=== PATIENT | male | born 1980 | race Caucasian/White ===

== ENCOUNTER 2017-05-12 11:24 | Emergency (ER) | payer SELFPAY ==
[~2017-05-12] VITALS: Ht 182.9 cm; Wt 58.8 kg
[2017-05-12] MEDS ORDERED: HYDROcodone/APAP 5/325 TABLET ONE (12:20)
[2017-05-12] MEDS ORDERED: CEFTRIAXONE 1,000 MG ONE (12:21)
[2017-05-12] MEDS ORDERED: HYDROcodone/APAP 5/325 TABLET PO ONE (12:30)
[2017-05-12] MEDS ORDERED: CEFTRIAXONE 1,000 MG in SODIUM CHLORIDE 0.9% 50 ML IVPB ONE (12:30)
[2017-05-12] MEDS ORDERED: SODIUM CHLORIDE FLUSH 10ML SYR IVF ONE (12:30)
[2017-05-12] MEDS ORDERED: CEFTRIAXONE 1,000 MG IM ONE (12:30)
[2017-05-12 12:53] LABS: BLOOD UREA NITROGEN 16 mg/dL (7-18)
[2017-05-12 13:03] VITALS: BP 114/68
== END 2017-05-12 13:15 | disposition home or self-care (01) ==
LOC: ED 12:34
DX: L03.113 Cellulitis of right upper limb (principal)
CPT/HCPCS: 36415; 80048; 82040; 85025; 96372; 99284; J0696

== ENCOUNTER 2017-05-13 06:55 | Emergency (ER) | payer SELFPAY ==
[~2017-05-13] VITALS: Ht 182.9 cm; Wt 57.0 kg
[2017-05-13] MEDS ORDERED: SODIUM CHLORIDE 0.9% 1,000ML IVBOLUS ONE (07:30)
[2017-05-13] MEDS ORDERED: ONDANSETRON 2MG/ML, 2ML IVPush ONE (07:30)
[2017-05-13] MEDS ORDERED: SODIUM CHLORIDE FLUSH 10ML SYR IVF ONE (07:30)
[2017-05-13] MEDS ORDERED: KETOROLAC 30 MG/1 ML IVPush ONE (07:30)
[2017-05-13] MEDS ORDERED: ONDANSETRON 2MG/ML, 2ML ONE (07:39)
[2017-05-13] MEDS ORDERED: KETOROLAC 30 MG/1 ML ONE (07:39)
[2017-05-13 09:30] VITALS: BP 95/44
[2017-05-14] MEDS ORDERED: GABA600T PO (12:10)
== END 2017-05-13 09:37 | disposition home or self-care (01) ==
LOC: ED 07:14
DX: L03.113 Cellulitis of right upper limb (principal)
CPT/HCPCS: 36415; 85025; 96361; 96374; 96375; 99285; J1885; J2405; J7030

== ENCOUNTER 2017-05-14 11:12 | Inpatient (IN) | payer SELFPAY ==
[~2017-05-14] VITALS: Ht 182.9 cm; Wt 64.0 kg
[2017-05-14] MEDS ORDERED: VANCOMYCIN PER PHARMACY MC ONE (12:00)
[2017-05-14] MEDS ORDERED: PIPERACILLIN/TAZO 3.375 GM in SODIUM CHLORIDE 0.9% 50 ML IVPB ONE (12:00)
[2017-05-14] MEDS ORDERED: HYDROmorphone 2 MG/ML, 1ML IVPush PRN (12:00)
[2017-05-14] MEDS ORDERED: SODIUM CHLORIDE 0.9% 1,000ML IVBOLUS ONE (12:00)
[2017-05-14] MEDS ORDERED: KETOROLAC 30 MG/1 ML IVPush ONE (12:00)
[2017-05-14] MEDS ORDERED: GABA600T PO (12:10)
[2017-05-14] MEDS ORDERED: PHARMACOKINETIC MONITORING MC PRN (12:30)
[2017-05-14] MEDS ORDERED: VANCOMYCIN 1,300 MG in SODIUM CHLORIDE 0.9% 250 ML IV ONE (12:30)
[2017-05-14] MEDS ORDERED: PHARMACOKINETIC CONSULTATION MC ONE (12:30)
[2017-05-14 12:45] LABS: BLOOD UREA NITROGEN 13 mg/dL (7-18)
[2017-05-14 12:53] LABS: ASPARTATE AMINO TRANSFERASE 1548 U/L (15-37)
[2017-05-14] MEDS ORDERED: KETOROLAC 30 MG/1 ML ONE (12:54)
[2017-05-14] MEDS ORDERED: HYDROmorphone 1 MG/ML, 1ML ONE (12:54)
[2017-05-14] MEDS ORDERED: BISACODYL 10 MG SUPP PR PRN (14:00)
[2017-05-14] MEDS ORDERED: VANCOMYCIN PER PHARMACY MC PRN (14:00)
[2017-05-14] MEDS ORDERED: ACETAMINOPHEN 325 MG TABLET PO PRN (14:00)
[2017-05-14] MEDS ORDERED: ONDANSETRON 2MG/ML, 2ML IVPush PRN (14:00)
[2017-05-14] MEDS ORDERED: PIPERACILLIN/TAZO/PMX 3.375GM 50 ML IV SCH (15:00)
[2017-05-14] MEDS ORDERED: GADOBUTROL 7.5 MMOL/7.5 ML PFS ONE (15:53)
[2017-05-14] MEDS: NS + 20MEQ KCL 1,000 ML IV SCH (16:30)
[2017-05-14] MEDS: VANCOMYCIN 1,300 MG in SODIUM CHLORIDE 0.9% 250 ML IV SCH (16:30)
[2017-05-14] MEDS: GABAPENTIN 300 MG CAPSULE PO SCH ×2 (16:33→20:44)
[2017-05-14 16:34] VITALS: BP 116/70
[2017-05-14] MEDS: NICOTINE 21 MG/24 HR PATCH.TD24 TD SCH (16:34)
[2017-05-14] MEDS: HYDROmorphone 2 MG/ML, 1ML IVPush PRN ×2 (16:53→20:44)
[2017-05-14] MEDS: LORazepam 2 MG/ML, 1ML IVPush PRN ×2 (16:54→22:55)
[2017-05-14 18:40] VITALS: BP 103/64
[2017-05-14] MEDS: PIPERACILLIN/TAZO/PMX 3.375GM 50 ML IV SCH (20:44)
[2017-05-14 21:34] LABS: DAU SCREEN DISCLAIMER
[2017-05-14] MEDS ORDERED: OMNIPAQUE 350 MG/ML, 100ML BOTTLE ONE (22:25)
[2017-05-15 01:40] VITALS: BP 107/63
[2017-05-15] MEDS: HYDROmorphone 2 MG/ML, 1ML IVPush PRN ×5 (02:21→20:03)
[2017-05-15] MEDS: PIPERACILLIN/TAZO/PMX 3.375GM 50 ML IV SCH ×3 (02:21→14:00)
[2017-05-15] MEDS: VANCOMYCIN 1,300 MG in SODIUM CHLORIDE 0.9% 250 ML IV SCH ×2 (04:20→16:54)
[2017-05-15] MEDS: LORazepam 2 MG/ML, 1ML IVPush PRN (04:20)
[2017-05-15 06:11] LABS: BLOOD UREA NITROGEN 10 mg/dL (7-18)
[2017-05-15 06:16] LABS: HIV 1&2 ANTIBODY SCREEN Nonreactive (Nonreactive); HIV-1 p24 ANTIGEN Nonreactive (Nonreactive)
[2017-05-15 06:24] LABS: ACETAMINOPHEN 4 mcg/mL (10-30); ASPARTATE AMINO TRANSFERASE 1315 U/L (15-37)
[2017-05-15 07:01] VITALS: BP 102/62
[2017-05-15] MEDS: GABAPENTIN 300 MG CAPSULE PO SCH ×3 (08:21→20:03)
[2017-05-15] MEDS: ENOXAPARIN 40 MG/0.4 ML SQ SCH (10:20)
[2017-05-15] MEDS: NS + 20MEQ KCL 1,000 ML IV SCH (11:00)
[2017-05-15] MEDS ORDERED: SODIUM CHLORIDE NASAL SPRAY 45ML BOTTLE NAS PRN (11:30)
[2017-05-15 11:45] LABS: HEPATITIS C VIRUS ANTIBODY Reactive (Nonreactive)
[2017-05-15 13:13] VITALS: BP 116/75
[2017-05-15] MEDS: NICOTINE 21 MG/24 HR PATCH.TD24 TD SCH (15:44)
[2017-05-15 18:45] VITALS: BP 116/70
[2017-05-16 01:32] VITALS: BP 113/71
[2017-05-16] MEDS: HYDROmorphone 2 MG/ML, 1ML IVPush PRN ×6 (01:53→23:35)
[2017-05-16] MEDS: VANCOMYCIN 1,300 MG in SODIUM CHLORIDE 0.9% 250 ML IV SCH ×2 (05:43→17:46)
[2017-05-16 05:57] LABS: BLOOD UREA NITROGEN 6 mg/dL (7-18)
[2017-05-16 06:08] LABS: ASPARTATE AMINO TRANSFERASE 617 U/L (15-37)
[2017-05-16 09:03] VITALS: BP 114/68
[2017-05-16] MEDS: GABAPENTIN 300 MG CAPSULE PO SCH ×3 (09:31→20:32)
[2017-05-16] MEDS: ENOXAPARIN 40 MG/0.4 ML SQ SCH (10:38)
[2017-05-16 14:00] VITALS: BP 112/71
[2017-05-16] MEDS: HYDROcodone/APAP 5/325 TABLET PO PRN (15:36)
[2017-05-16] MEDS: NICOTINE 21 MG/24 HR PATCH.TD24 TD SCH (15:36)
[2017-05-16 19:33] VITALS: BP 115/76
[2017-05-17 03:00] VITALS: BP 107/71
[2017-05-17] MEDS: HYDROmorphone 2 MG/ML, 1ML IVPush PRN ×3 (03:27→21:57)
[2017-05-17 05:35] LABS: ASPARTATE AMINO TRANSFERASE 249 U/L (15-37); BLOOD UREA NITROGEN 7 mg/dL (7-18)
[2017-05-17] MEDS: VANCOMYCIN 1,300 MG in SODIUM CHLORIDE 0.9% 250 ML IV SCH ×2 (06:21→16:44)
[2017-05-17 07:44] VITALS: BP 118/73
[2017-05-17] MEDS: GABAPENTIN 300 MG CAPSULE PO SCH ×3 (08:05→20:16)
[2017-05-17] MEDS ORDERED: HYDROmorphone 2 MG/ML, 1ML ONE (08:53)
[2017-05-17] MEDS: ENOXAPARIN 40 MG/0.4 ML SQ SCH (10:02)
[2017-05-17] MEDS: HYDROcodone/APAP 5/325 TABLET PO PRN ×2 (10:02→16:45)
[2017-05-17 14:08] VITALS: BP 106/66
[2017-05-17] MEDS: NICOTINE 21 MG/24 HR PATCH.TD24 TD SCH (16:44)
[2017-05-17 19:12] VITALS: BP 110/63
[2017-05-17] MEDS ORDERED: HYDROmorphone 4MG TABLET PO ONE (21:00)
[2017-05-18 01:59] VITALS: BP 116/70
[2017-05-18] MEDS: HYDROcodone/APAP 5/325 TABLET PO PRN (02:00)
[2017-05-18] MEDS: VANCOMYCIN 1,300 MG in SODIUM CHLORIDE 0.9% 250 ML IV SCH (05:19)
[2017-05-18 06:08] LABS: BLOOD UREA NITROGEN 10 mg/dL (7-18)
[2017-05-18] MEDS: HYDROmorphone 2 MG/ML, 1ML IVPush PRN (06:15)
[2017-05-18 07:55] VITALS: BP 112/74
[2017-05-18] MEDS ORDERED: HYDR-3240 PO (08:26)
[2017-05-18] MEDS ORDERED: SULF1TAB24 PO (08:29)
[2017-05-18] MEDS: GABAPENTIN 300 MG CAPSULE PO SCH (09:34)
[2017-05-18] MEDS: ENOXAPARIN 40 MG/0.4 ML SQ SCH (10:30)
[2017-05-18] MEDS ORDERED: PNEUMOCOCCAL VACC.PER PHARMACY IM ONE (11:00)
[2017-05-18 11:07] LABS: HEPATITIS C PCR QUANTITATION <15 IU/mL (.)
[2017-05-18] MEDS ORDERED: HYDROmorphone 2 MG/ML, 1ML IVPush ONE (11:30)
[2017-05-18] MEDS ORDERED: PNEUMOCOCCAL 23 VACCINE IM-VACC ONE (11:30)
== END 2017-05-18 12:10 | disposition home or self-care (01) | DRG 872 ==
LOC: ED 12:18 → EDIP 13:17 → SUATTDRO 13:37 → 3NE 14:15
DX: A41.9 Sepsis, unspecified organism (principal); B18.1 Chronic viral hepatitis B without delta-agent; L03.113 Cellulitis of right upper limb; F11.20 Opioid dependence, uncomplicated; F17.210 Nicotine dependence, cigarettes, uncomplicated; Z83.3 Family history of diabetes mellitus; F12.90 Cannabis use, unspecified, uncomplicated; D64.9 Anemia, unspecified; Z59.0 Homelessness; Z86.14 Personal history of Methicillin resistant Staphylococcus aureus infection; J44.9 Chronic obstructive pulmonary disease, unspecified; F41.9 Anxiety disorder, unspecified; G62.9 Polyneuropathy, unspecified; M54.12 Radiculopathy, cervical region; B18.2 Chronic viral hepatitis C; Z86.19 Personal history of other infectious and parasitic diseases; R74.0 Nonspecific elevation of levels of transaminase and lactic acid dehydrogenase [LDH]
CPT/HCPCS: 36415; 74177; 76700; 80048; 80053; 80074; 80202; 80307; 82140; 83605; 84145; 85025; 85610; 85651; 86141; 86703; 87040; 87521; 87522; 87899; 87902; 90732; 96374; 96375; A9585; J1170; J1650; J1885; J2543; J3370; J3480; Q9967; G0435; J2060; J7030; J7050

== ENCOUNTER 2017-05-23 07:09 | Emergency (ER) | payer MEDICAID ==
[~2017-05-23] VITALS: Ht 182.9 cm; Wt 57.0 kg
[~2017-05-23 07:09] MED LIST: GABA600T PO; HYDR-3240 PO; SULF1TAB24 PO
[2017-05-23] MEDS ORDERED: SODIUM CHLORIDE FLUSH 10ML SYR IVF ONE (07:30)
[2017-05-23] MEDS ORDERED: CEFTAROLINE 600 MG in SODIUM CHLORIDE 0.9% 100 ML IV ONE (07:30)
[2017-05-23] MEDS ORDERED: OXYcodone/APAP 5/325MG TABLET PO ONE (08:00)
[2017-05-23] MEDS ORDERED: OXYcodone/APAP 5/325MG TABLET ONE (08:20)
[2017-05-23 09:24] VITALS: BP 124/68
== END 2017-05-23 09:26 | disposition home or self-care (01) ==
LOC: ED 07:57
DX: L03.113 Cellulitis of right upper limb (principal)
CPT/HCPCS: 36415; 73130; 83605; 85025; 96365; 99285; J0712